=== PATIENT | male | born 1980 | race African-American/Black ===

== ENCOUNTER 2016-12-14 22:50 | Emergency (ER) | payer OTHER ==
[~2016-12-14] VITALS: Ht 170.2 cm; Wt 84.4 kg
[2016-12-14 23:03] VITALS: BP 179/98
[2016-12-14] MEDS ORDERED: MORPHINE SULFATE 10 MG/ML VIAL. IM ONE (23:30)
[2016-12-14] MEDS ORDERED: KETOROLAC TROMETHAMINE 60 MG/2 ML SYRINGE. IM ONE (23:30)
--- NOTE | 2016-12-15 00:02 | PHYS DOC ---
Past Medical History Past Medical History: No Pertinent History Past Surgical History: Other Additional Past Surgical Histo: R index finger sx Alcohol Use: Occasionally Drug Use: None Adult General Chief Complaint Chief Complaint: THUMB HPI HPI Patient is a 36 year old male who presents with moderate right index finger pain after having index finger surgery yesterday at [facility]. Patient denies any new injuries. He states he was sent home with oxycodone but it's not helping with his pain. He states he has an appointment with his orthopedic doctor tomorrow morning at 8 AM. Review of Systems Review of Systems Constitutional: Denies fever or chills [] Eyes: Denies change in visual acuity, redness, or eye pain [] Musculoskeletal: Right index finger pain Integument: Denies rash or skin lesions [] Neurologic: Denies headache, focal weakness or sensory changes [] Endocrine: Denies polyuria or polydipsia [] Current Medications Current Medications Current Medications Medications (Trade) Dose Ordered Sig/Deb Start Time Stop Time Status Last Admin Dose Admin Ketorolac Tromethamine (Toradol Im) 60 mg 1X ONCE 12/14/16 23:30 12/14/16 23:31 DC Morphine Sulfate 5 mg 1X ONCE 12/14/16 23:30 12/14/16 23:31 DC Allergies Allergies Allergies Coded Allergies Type Severity Reaction Last Updated Verified No Known Drug Allergies 12/14/16 No Physical Exam Physical Exam Constitutional: Well developed, well nourished, no acute distress, non-toxic appearance. [] HENT: Normocephalic, atraumatic, bilateral external ears normal, oropharynx moist, no oral exudates, nose normal. [] Skin: Warm, dry, no erythema, no rash. [] Back: No tenderness, no CVA tenderness. [] Extremities: Right forearm is in a splint, right index finger is in a flexed position patient stated this has been present post open. There is an incision site with stitches noted on the right index finger dorsal aspect along the PIP joint, the laceration is well approximated, no signs of infection. There is +2 edema noted throughout the right hand. Cap refill less than 2 seconds the right fingers. Adequate ulnar medial, radial sensation to the right fingers. +2 right radial pulse. Neurologic: Alert and oriented X 3, normal motor function, normal sensory function, no focal deficits noted. [] Psychologic: Affect normal, judgement normal, mood normal. [] Current Patient Data Vital Signs Vital Signs Date Time Temp Pulse Resp B/P Pulse Ox O2 Delivery O2 Flow Rate FiO2 12/14/16 23:03 99.3 75 20 100 Room Air 99.3 EKG EKG [] Radiology/Procedures Radiology/Procedures [] Course & Med Decision Making Course & Med Decision Making Pertinent Labs and Imaging studies reviewed. (See chart for details) Patient is in the ED with right index finger pain after he was operated on yesterday at [facility]. He has oxycodone which he states it is not helping. He has an appointment with his own orthopedic doctor tomorrow morning at 8 AM. I gave him a shot of Toradol and morphine in the ED and discharged him to see his orthopedic doctor at [facility] tomorrow morning. Encouraged him to try and ice and elevate the extremity. Dragon Disclaimer Dragon Disclaimer This electronic medical record was generated, in whole or in part, using a voice recognition dictation system. Departure Departure Impression: Primary Impression: Finger pain, right Disposition: 01 HOME, SELF-CARE Condition: STABLE Referrals: NO PCP (PCP) Follow-up with your doctor at [facility] tomorrow Patient Instructions: Musculoskeletal Pain Additional Instructions: You were seen for ongoing finger pain after surgery yesterday. Please follow-up with your doctor at [facility] tomorrow. Ice and elevate the extremity. Take your pain medicine as prescribed by your doctor. DARYN GAUTHIER APRN Dec 15, 2016 00:02
== END 2016-12-15 01:15 | disposition home or self-care (01) ==
LOC: ER 22:50
DX: G89.18 Other acute postprocedural pain (principal); M79.644 Pain in right finger(s)
CPT/HCPCS: 96372; 99284; J1885; J2270